=== PATIENT | female | born 1995 | race African-American/Black ===

== ENCOUNTER 2020-07-10 07:12 | Emergency (ER) | payer OTHER ==
[~2020-07-10] VITALS: Ht 170.2 cm; Wt 84.1 kg
[2020-07-10 07:14] VITALS: BP 146/92; Ht 170.2 cm; Wt 84.1 kg
[2020-07-10] MEDS ORDERED: DEPAKOTE500 MG PO (07:34)
[2020-07-10 08:13] LABS: NITRITE NEGATIVE (NEGATIVE)
[2020-07-10 08:14] LABS: BILIRUBIN NEGATIVE (NEGATIVE); KETONE NEGATIVE (NEGATIVE); UROBILINOGEN NORMAL mg/dL (< 2)
[2020-07-10 08:21] LABS: BACTERIA FEW HPF (NONE SEEN); UDS - AMPHET NEGATIVE QUAL (NEGATIVE); UDS - BARB NEGATIVE QUAL (NEGATIVE); UDS - BENZO NEGATIVE QUAL (NEGATIVE); UDS - COCAINE NEGATIVE QUAL (NEGATIVE); UDS - OPIATE NEGATIVE QUAL (NEGATIVE); UDS - PCP NEGATIVE QUAL (NEGATIVE); UDS - THC POSITIVE QUAL (NEGATIVE); WHITE CELLS - URINE 0-5 HPF (0-4)
[2020-07-10 08:22] LABS: BASOPHILS 0.5 % (0-2); EOSINOPHILS 0.8 % (0-7); HEMATOCRIT 38.8 % (36.0-48.0); HEMOGLOBIN 12.8 g/dL (12-16); IMMATURE GRANULOCYTES 0.1 % (0-5); LYMPHOCYTE ABS# 1.88 10x3/uL (1.18-3.74); LYMPHOCYTES 22.4 % (15-50); MCH 26.6 pg (26.0-34.0); MCV 80.7 fL (80.0-100.0); MEAN PLATELET VOLUME 11.1 fL (7.4-10.4); MONOCYTES 12.3 % (2-11); NEUTROPHIL ABS# 5.36 10x3/uL (1.56-6.13); NEUTROPHILS 63.9 % (40-80); PLATELET COUNT 214 10x3/uL (130-400); RBC 4.81 10x6/uL (4.00-5.40); RDW 14.2 % (11.5-14.5); WBC 8.4 10x3/uL (4.8-10.8)
[2020-07-10 08:39] LABS: CALC OSMOLALITY 275 mosm/kg (275-300); CALCIUM 8.6 mg/dL (8.5-10.1); CARBON DIOXIDE 22.4 mmol/L (21.0-32.0); CHLORIDE - SERUM 104 mmol/L (98-107); CREATININE - SERUM 0.7 mg/dL (0.6-1.3); GLUCOSE 88 mg/dL (74-106); POTASSIUM - SERUM 3.6 mmol/L (3.5-5.1); SODIUM 139 mmol/L (136-145); UREA NITROGEN 11 mg/dL (7-18); eGFR NON AFRICAN AMERICAN > 90 mL/min (90-120)
[2020-07-10 08:43] LABS: ALBUMIN 3.9 g/dL (3.4-5.0); ALKALINE PHOSPHATASE 80 U/L (30-120); ALT (SGPT) 30 U/L (10-68); BILIRUBIN - TOTAL 0.61 mg/dL (0.2-1.3); MAGNESIUM - SERUM 2.1 mg/dL (1.8-2.4); PROTEIN - SERUM 7.6 g/dL (6.4-8.2)
[2020-07-10 10:25] LABS: HCG URINE NEGATIVE (NEGATIVE)
--- NOTE | 2020-07-10 11:02 | NUR ---
Dr. Campos notified and reviewed patients behavior and assessment results. Dr. Murguia and charge nurse Jasmina also aware of patients current condition and all agree. Patient has been given medication that has made her very drowsy. She will open her eyes for a few minutes and then close them and roll over on the bed. She cannot answer suicide assessment questions at this time. With review of [facility] assessment of the risk screening, she scores a moderate risk. She will be placed on a observation assessment with a one to one sitter. She also has been placed on a referral from Dr. Murguia for inpatient counseling and medication placement and review. No further orders at this time/date.
[2020-07-10 11:51] LABS: SARS-CoV-2 ANTIGEN NEGATIVE- SARS-COV-2 (NEGATIVE)
== END 2020-07-10 16:24 ==
LOC: D.ER 07:12
PROVIDERS: Emergency Medicine
DX: F30.11 Manic episode without psychotic symptoms, mild (principal); R45.851 Suicidal ideations

== ENCOUNTER 2020-07-27 22:47 | Inpatient (IN) | payer OTHER ==
[~2020-07-27] VITALS: Ht 170.2 cm; Wt 80.5 kg
[~2020-07-27 22:47] MED LIST: DEPAKOTE500 MG PO
[2020-07-27] MEDS ORDERED: TRAZODONE HCL50 MG PO (23:32)
[2020-07-27] MEDS ORDERED: CELEXA20 MG PO (23:32)
[2020-07-27 23:39] LABS: HEMATOCRIT 34.6 % (36.0-48.0); HEMOGLOBIN 11.5 g/dL (12-16); MCH 25.9 pg (26.0-34.0); MCHC 33.2 g/dL (31.0-37.0); MCV 78.1 fL (80.0-100.0); MEAN PLATELET VOLUME 8.6 fL (7.4-10.4); PLATELET COUNT 455 10x3/uL (130-400); RBC 4.43 10x6/uL (4.00-5.40); RDW 13.9 % (11.5-14.5); WBC 34.5 10x3/uL (4.8-10.8)
[2020-07-27 23:49] LABS: CALC OSMOLALITY 274 mosm/kg (275-300); CALCIUM 8.4 mg/dL (8.5-10.1); CARBON DIOXIDE 26.3 mmol/L (21.0-32.0); CHLORIDE - SERUM 100 mmol/L (98-107); CREATININE - SERUM 0.7 mg/dL (0.6-1.3); GLUCOSE 110 mg/dL (74-106); POTASSIUM - SERUM 3.4 mmol/L (3.5-5.1); SODIUM 138 mmol/L (136-145); UREA NITROGEN 7 mg/dL (7-18); eGFR NON AFRICAN AMERICAN > 90 mL/min (90-120)
[2020-07-27 23:54] LABS: HCG SERUM NEGATIVE (NEGATIVE)
[2020-07-27 23:56] LABS: ALBUMIN 2.4 g/dL (3.4-5.0); ALKALINE PHOSPHATASE 110 U/L (30-120); ALT (SGPT) 72 U/L (10-68); BILIRUBIN - TOTAL 0.31 mg/dL (0.2-1.3); PROTEIN - SERUM 7.5 g/dL (6.4-8.2)
[2020-07-28 00:24] LABS: LYMPHOCYTES 11 % (15-50); MONOCYTES 4 % (2-11); NEUTROPHILS 79 % (40-80); PLATELET ESTIMATE INCREASED
[2020-07-28 01:33] LABS: ERYTHROCYTE SEDIMENTATION RATE 42 mm/hr (0-20)
[2020-07-28 02:15] VITALS: BP 131/64
[2020-07-28 02:59] LABS: APTT 34.3 SECONDS (22.8-39.4); INR 1.42 (0.85-1.17); PROTIME 16.1 SECONDS (11.6-15.0)
[2020-07-28 03:51] VITALS: BP 131/69; BMI 27.6
[2020-07-28 09:22] VITALS: BP 131/72
[2020-07-28 11:35] VITALS: BP 117/57
--- NOTE | 2020-07-28 15:55 | NUR ---
RETURN FROM RECOVERY AT THIS TIME IN STABLE CONDITION WITH DRESSING NOTED TO LEFT BUTTOCK. C/L IN REACH AT BEDSIDE.
--- NOTE | 2020-07-28 16:55 | NUR ---
I have reviewed this patient and I concur with the Shift Assessment completed by the Licensed Practical Nurse today this shift.
--- NOTE | 2020-07-28 18:11 | NUR ---
REC'D IN BED AWAKE AND ALERT. RESP EVEN AND UNLABORED WITH NO DISTRESS NOTED. CAN EXPRESS NEEDS AND WANTS. C/O LEFT BUTTOCK HURTING RATING 9/10 ON PAIN SCALE. ASSESSMENT COMPLETED. C/L IN REACH AT BEDSIDE.
[2020-07-28 20:00] VITALS: BP 113/64
[2020-07-29] VITALS: BP 112/67
[2020-07-29 04:00] VITALS: BP 113/64
--- NOTE | 2020-07-29 06:00 | NUR ---
I have reviewed this patient and I concur with the Shift Assessment completed by the Licensed Practical Nurse today this shift.
--- NOTE | 2020-07-29 07:15 | NUR ---
REC'D IN BED AWAKE AND ALERT. RESP EVEN AND UNLABORED WITH NO DISTRESS NOTED CAN EXPRESS NEEDS AND WANTS. ASSESSMENT COMPLETED. C/L IN REACH AT BEDSIDE.
--- NOTE | 2020-07-29 08:01 | NUR ---
WAS MEDICATED WITH MORPHINE AT THIS TIME FOR C/O LEFT BUTTOCK PAIN. C/L IN REACH AT BEDSIDE.
[2020-07-29 08:38] VITALS: BP 121/71
--- NOTE | 2020-07-29 11:26 | NUR ---
I have reviewed this patient and I concur with the Shift Assessment completed by the Licensed Practical Nurse today this shift.
[2020-07-29 11:45] VITALS: BP 110/51
--- NOTE | 2020-07-29 13:20 | NUR ---
WAS MEDICATED WITH PRN MEDICATION OF MORPHINE FOR C/O PAIN. C/L IN REACH AT BEDSIDE.
[2020-07-29 17:03] VITALS: BP 104/58
[2020-07-29 18:58] VITALS: Ht 170.2 cm; Wt 80.5 kg
[2020-07-29 20:00] VITALS: BP 107/58
[2020-07-30 04:00] VITALS: BP 114/60
--- NOTE | 2020-07-30 07:20 | NUR ---
REC'D IN BED AWAKE AND ALERT. RESP EVEN AND UNLABORED WITH NO DISTRESS NOTED. CAN EXPRESS NEEDS AND WANTS. NO C/O NOTED OR VOICED AT THIS TIME. ASSESSMENT COMPLETED. C/L IN REACH AT BEDSIDE.
--- NOTE | 2020-07-30 07:49 | NUR ---
OFF FLOOR AT THIS TIME TO SURGERY SUITE. STABLE CONDITION UPON DEPARTURE.
[2020-07-30 08:23] VITALS: BP 115/63
[2020-07-30] MEDS ORDERED: TYLENOL W/CODEI1 TAB PO (09:21)
[2020-07-30] MEDS ORDERED: BACTRIM DS TAB1 EAC1 PO (09:22)
[2020-07-30 10:21] VITALS: BP 127/70
--- NOTE | 2020-07-30 11:34 | NUR ---
PATIENT IS RESTING WITHOUT DISTRESS.FAMILY IN ROOM.
[2020-07-30 11:44] LABS: HEMATOCRIT 28.1 % (36.0-48.0); HEMOGLOBIN 9.2 g/dL (12-16); MCH 25.7 pg (26.0-34.0); MCHC 32.6 g/dL (31.0-37.0); MCV 78.6 fL (80.0-100.0); MEAN PLATELET VOLUME 7.6 fL (7.4-10.4); PLATELET COUNT 454 10x3/uL (130-400); RBC 3.57 10x6/uL (4.00-5.40); RDW 14.5 % (11.5-14.5); WBC 19.7 10x3/uL (4.8-10.8)
[2020-07-30 12:05] LABS: CALC OSMOLALITY 278 mosm/kg (275-300); CALCIUM 7.4 mg/dL (8.5-10.1); CARBON DIOXIDE 27.3 mmol/L (21.0-32.0); CHLORIDE - SERUM 107 mmol/L (98-107); CREATININE - SERUM 0.6 mg/dL (0.6-1.3); GLUCOSE 100 mg/dL (74-106); POTASSIUM - SERUM 3.9 mmol/L (3.5-5.1); SODIUM 141 mmol/L (136-145); UREA NITROGEN 7 mg/dL (7-18); eGFR NON AFRICAN AMERICAN > 90 mL/min (90-120)
[2020-07-30 12:09] VITALS: BP 118/62
[2020-07-30 14:22] LABS: ANISOCYTOSIS OCC; LYMPHOCYTES 20 % (15-50); MONOCYTES 12 % (2-11); NEUTROPHILS 67 % (40-80); PLATELET ESTIMATE INCREASED
[2020-07-30 17:02] VITALS: BP 97/50
[2020-07-30 20:00] VITALS: BP 101/47
[2020-07-31] VITALS: BP 92/53
[2020-07-31 04:00] VITALS: BP 106/54
--- NOTE | 2020-07-31 04:25 | NUR ---
07/30/20) WALKING ROUNDS CHGE OF SHIFT WD. VAC BEEPING TUBING PLUGGED UP NO AIR LEAK.ENTRY SITE CHECKED PATIENT SCREAMING WHEN ASSISTING TO TURN TO ASSESS.DRESSING LOOKING GOOD. DK BROWNISH COLORED DRAINAGE BEING SUCKED FROM WOUND TUBING AND TO COLLECTION CANISTER. 0045 CONTINUES TO BEEP.0400)CHARGE NURSE ASSESSED WD VAC AND WOUND NO MALFUNCTIOND NOTED WILL CONTINUE TO MONITOR FOR ANY CHGES AND FOLLOW CURRENT PLAN OF CARE
[2020-07-31 08:02] LABS: BASOPHILS 0.5 % (0-2); EOSINOPHILS 0.6 % (0-7); HEMATOCRIT 29.1 % (36.0-48.0); HEMOGLOBIN 9.6 g/dL (12-16); LYMPHOCYTES 26.3 % (15-50); MCH 25.9 pg (26.0-34.0); MCHC 32.8 g/dL (31.0-37.0); MCV 78.8 fL (80.0-100.0); MEAN PLATELET VOLUME 7.7 fL (7.4-10.4); MONOCYTES 11.7 % (2-11); NEUTROPHILS 60.9 % (40-80); PLATELET COUNT 481 10x3/uL (130-400); RDW 14.2 % (11.5-14.5); WBC 15.2 10x3/uL (4.8-10.8)
[2020-07-31 08:27] VITALS: BP 121/70
[2020-07-31 12:37] VITALS: BP 102/50
--- NOTE | 2020-07-31 14:08 | MORECARE ---
CASE MANAGEMENT DISCHARGE SUMMARY PATIENT: DIANN AZUL UNIT: [id number] ADM DATE: 07/28/20 AGE: 24 : 95 SEX: F ROOM/BED: D.2203 AUTHOR: SOHAM,DOC PHYSICIAN: REFERRING PHYSICIAN: SYEDA CARTAGENA MD DATE OF SERVICE: 07/31/20 Case Management Discharge Planning Summary COMMENTS ENTERED DATE: 07/31/20 14:01 CT COMMENT TYPE: Discharge Planning REVIEWER: Laure Jara LATE ENTRY 07/30/20 @1500 CM MET WITH PATIENT AND BOYFRIEND ABOUT DISCHARGE PLANNING. SHE HAS RECENTLY MOVED HERE FROM [place] AND IS STAYING WITH HER MOTHER. SHE IS INDEPENDENT WITH HER CARE AND WILL NEED HOME HEALTH FOR WEEKLY WOUND VAC DRESSING CHANGE. THERE IS NO PREFERENCE ON HOME HEALTH COMPANY, I AM AWAITING FOR DR CHAKRABORTY TO SIGN THE WOUND VAC ORDER FOR INSURANCE TO APPROVE IT. LARISSA SIGNED AND PLACED IN CHART PATIENT'S CORRECT PHONE NUMBER- [phone] DCP REVIEW SUMMARY ANTICIPATED D/C DATE: EXPECTED LOS : CASE STATUS: DCP Initiated INITIAL REVIEW: 07/28/2020 INITIAL REVIEWER: Laure Jara FINAL DISCHARGE DISPOSITION: : FINAL REVIEWER: FINAL REVIEW DATE: DCP Focus Questions & Answers QUESTION: ANSWER : PATIENT: DIANN AZUL ENCOUNTER: [id number] MEDICAL RECORD#: [id number] ADMISSION DATE: 07/28/2020 DISCHARGE DATE: ATTENDING MD: SYEDA MCKEON : AGE: 24 MARITAL STATUS: S DC PLAN ID: [id number] FACILITY: [facility] PRINTED ON: 07/31/20 14:08 CT All edits/amendments must be made on the electronic document DICTATION DATE: 07/31/201407 DAM OPERATOR: DM 07/31/20 140 RPT#: [id number] DC DATE: STATUS: ADM IN [facility] [address] [place] [address] END OF REPORT
--- NOTE | 2020-07-31 14:21 | MORECARE ---
CASE MANAGEMENT DISCHARGE SUMMARY PATIENT: DIANN AZUL UNIT: [id number] ADM DATE: 07/28/20 AGE: 24 : 95 SEX: F ROOM/BED: D.2203 AUTHOR: BELLA ROUSSEAU PHYSICIAN: REFERRING PHYSICIAN: SYEDA CARTAGENA MD DATE OF SERVICE: 07/31/20 Case Management Discharge Planning Summary COMMENTS ENTERED DATE: 07/31/20 14:07 CT COMMENT TYPE: Discharge Planning REVIEWER: Laure Jara HER CARLY IBARRA [phone] ENTERED DATE: 07/31/20 14:01 CT COMMENT TYPE: Discharge Planning REVIEWER: Laure Jara LATE ENTRY 07/30/20 @1500 CM MET WITH PATIENT AND BOYFRIEND ABOUT DISCHARGE PLANNING. SHE HAS RECENTLY MOVED HERE FROM [place] AND IS STAYING WITH HER MOTHER. SHE IS INDEPENDENT WITH HER CARE AND WILL NEED HOME HEALTH FOR WEEKLY WOUND VAC DRESSING CHANGE. THERE IS NO PREFERENCE ON HOME HEALTH COMPANY, I AM AWAITING FOR DR CHAKRABORTY TO SIGN THE WOUND VAC ORDER FOR INSURANCE TO APPROVE IT. LARISSA SIGNED AND PLACED IN CHART PATIENT'S CORRECT PHONE NUMBER- [phone] DCP REVIEW SUMMARY ANTICIPATED D/C DATE: EXPECTED LOS : CASE STATUS: DCP Initiated INITIAL REVIEW: 07/28/2020 INITIAL REVIEWER: Laure Jara FINAL DISCHARGE DISPOSITION: : FINAL REVIEWER: FINAL REVIEW DATE: DCP Focus Questions & Answers QUESTION: ANSWER : PATIENT: DIANN AZUL ENCOUNTER: [id number] MEDICAL RECORD#: [id number] ADMISSION DATE: 07/28/2020 DISCHARGE DATE: ATTENDING MD: SYEDA MCKEON : AGE: 24 MARITAL STATUS: S DC PLAN ID: [id number] FACILITY: [facility] PRINTED ON: 07/31/20 14:21 CT All edits/amendments must be made on the electronic document DICTATION DATE: 07/31/20 142 AIR CARRIER MAINTENANCE INSPECTOR: RASHID 07/31/20 142 RPT#: [id number] DC DATE: STATUS: ADM IN [facility] [address] [place] [address] END OF REPORT
--- NOTE | 2020-07-31 17:15 | NUR ---
ALERT AND ORIENTED X4. WOUND VAC INTACT TO LEFT BUTTOCK AREA AND DENIES ANY PAIN OR DISCOMFORT. IVF INFUSING TO RIGHT HAND WITH NO S/S OF INFECTION/INFILTRATION. ENCOURAGED TO USE CALL LIGHT FOR ASSIST.
--- NOTE | 2020-07-31 23:30 | NUR ---
ASSESSED AT THE BEGINNING OF THE SHIFT. PT IS ALEART AND ORIENTED, ABLE TO VERBALIZE NEEDS. SIGNIFICANT OTHER AT BEDSIDE. ABLE TO GET UP TO BATHROOM TO VOID. SHE IS ALSO IN HER PERIOD. WOUND VAC WAS ALARMING THAT IT WAS LEAKING AND IT WAS RESEALED. AFTER THAT IT ALARMED THAT IT WAS BLOCKED. ATTEMPTED TO FIX THIS AND THEN LOOKED FOR ANOTHER WOUND VAC SINCE IT WAS FOUND OUT THAT IT WAS NOT WORKING SINCE THE NIGHT BEFORE. ASSOCIATE DATA SCIENTIST CALLED AND REQUESTED A NEW WOUND VAC. SHE STATED WE COULD NOT GET ONE AT THIS TIME. MD DR LUGO CALLED AND INFORMED. HE GAVE ORDERS FOR REMOVAL AND A WET TO DRY DRESSING TO BE PLACED ON IT. THIS WAS PAINFUL TO BE REMOVED AND SHE HAD NO PAIN MED AVAIBLE AT THAT TIME. AFTER REMOVED, A WET TO DRY DRESSING WAS APPLIED USING MINIMAL TAPE.
--- NOTE | 2020-08-01 06:13 | NUR ---
PT HAS SLEPT WELL DURING THE NIGHT WITH NO PROBLEMS NOTED.
[2020-08-01 08:48] VITALS: BP 121/87
--- NOTE | 2020-08-01 09:48 | MORECARE ---
CASE MANAGEMENT DISCHARGE SUMMARY PATIENT: DIANN AZUL UNIT: [id number] ADM DATE: 07/28/20 AGE: 24 : 95 SEX: F ROOM/BED: D.2203 AUTHOR: BELLA ROUSSEAU PHYSICIAN: REFERRING PHYSICIAN: SYEDA CARTAGENA MD DATE OF SERVICE: 08/01/20 Case Management Discharge Planning Summary COMMENTS ENTERED DATE: 08/01/20 9:38 CT COMMENT TYPE: Discharge Planning REVIEWER: Laure Jara RECEIVED THE SIGNED WOUND VAC ORDER THIS MORNING I HAVE SUBMITTED IT TO [facility] ENTERED DATE: 07/31/20 14:07 CT COMMENT TYPE: Discharge Planning REVIEWER: Laure Jara HER CARLY IBARRA [phone] ENTERED DATE: 07/31/20 14:01 CT COMMENT TYPE: Discharge Planning REVIEWER: Laure Jara LATE ENTRY 07/30/20 @1500 CM MET WITH PATIENT AND BOYFRIEND ABOUT DISCHARGE PLANNING. SHE HAS RECENTLY MOVED HERE FROM [place] AND IS STAYING WITH HER MOTHER. SHE IS INDEPENDENT WITH HER CARE AND WILL NEED HOME HEALTH FOR WEEKLY WOUND VAC DRESSING CHANGE. THERE IS NO PREFERENCE ON HOME HEALTH COMPANY, I AM AWAITING FOR DR CHAKRABORTY TO SIGN THE WOUND VAC ORDER FOR INSURANCE TO APPROVE IT. LARISSA SIGNED AND PLACED IN CHART PATIENT'S CORRECT PHONE NUMBER- [phone] DCP REVIEW SUMMARY ANTICIPATED D/C DATE: EXPECTED LOS : CASE STATUS: DCP Initiated INITIAL REVIEW: 07/28/2020 INITIAL REVIEWER: Laure Jara FINAL DISCHARGE DISPOSITION: : FINAL REVIEWER: FINAL REVIEW DATE: VAP Focus Questions & Answers QUESTION: ANSWER : PATIENT: DIANN AZUL ENCOUNTER: [id number] MEDICAL RECORD#: [id number] ADMISSION DATE: 07/28/2020 DISCHARGE DATE: ATTENDING MD: SYEDA MCKEON : AGE: 24 MARITAL STATUS: S DC PLAN ID: [id number] FACILITY: [facility] PRINTED ON: 08/01/20 9:48 CT All edits/amendments must be made on the electronic document DICTATION DATE: 08/01/20947 MUSIC REHABILITATION THERAPIST: RASHID 08/01/20947 RPT#: [id number] DC DATE: STATUS: ADM IN [facility] [address] [place] [address] END OF REPORT
[2020-08-01 10:49] LABS: BASOPHILS 1.2 % (0-2); EOSINOPHILS 1.2 % (0-7); HEMATOCRIT 33.9 % (36.0-48.0); HEMOGLOBIN 10.9 g/dL (12-16); LYMPHOCYTES 23.8 % (15-50); MCH 25.3 pg (26.0-34.0); MCV 79.1 fL (80.0-100.0); MEAN PLATELET VOLUME 8.9 fL (7.4-10.4); MONOCYTES 10.4 % (2-11); NEUTROPHILS 63.4 % (40-80); PLATELET COUNT 469 10x3/uL (130-400); RBC 4.29 10x6/uL (4.00-5.40); RDW 14.1 % (11.5-14.5); WBC 16.2 10x3/uL (4.8-10.8)
[2020-08-01 11:56] VITALS: BP 122/68
[2020-08-01 12:56] VITALS: BP 122/68
--- NOTE | 2020-08-01 13:30 | NUR ---
WOUND VAC CHANGED TO LEFT BUTTOCK WITH MORPHINE IR GIVEN FOR PAIN MANAGEMENT. UP ADLIB WITH SBA
--- NOTE | 2020-08-01 15:26 | MORECARE ---
CASE MANAGEMENT DISCHARGE SUMMARY PATIENT: DIANN AZUL UNIT: [id number] ADM DATE: 07/28/20 AGE: 24 : 95 SEX: F ROOM/BED: D.2203 AUTHOR: SOHAM,DOC PHYSICIAN: REFERRING PHYSICIAN: SYEDA CARTAGENA MD DATE OF SERVICE: 08/01/20 Case Management Discharge Planning Summary COMMENTS ENTERED DATE: 08/01/20 15:19 CT COMMENT TYPE: Discharge Planning REVIEWER: Laure Jara PATIENT WOUND VAC HAS BEEN APPROVED, I HAVE FAXED EVERYTHING AND CALLED MATERIALS AND SPOKE WIHT INÉS FOR IT TO BE BROUGHT UP HERE FOR ANTICIPATED DC OVER THE WEEKEND. [facility] WILL BE ACCEPTING HER WHEN SHE IS DISCHARGED. HER DRESSING WAS CHANGED TODAY SO NEXT TIME THE WOUND VAC NEEDS TO BE CHANGED ON August ( NEXT TUESDAY) CM TO FOLLOW NEEDED ENTERED DATE: 08/01/20 9:38 CT COMMENT TYPE: Discharge Planning REVIEWER: Laure Estefani RECEIVED THE SIGNED WOUND VAC ORDER THIS MORNING I HAVE SUBMITTED IT TO [facility] ENTERED DATE: 07/31/20 14:07 CT COMMENT TYPE: Discharge Planning REVIEWER: Laure Jara HER CARLY IBARRA [phone] ENTERED DATE: 07/31/20 14:01 CT COMMENT TYPE: Discharge Planning REVIEWER: Laure Jara LATE ENTRY 07/30/20 @1500 CM MET WITH PATIENT AND BOYFRIEND ABOUT DISCHARGE PLANNING. SHE HAS RECENTLY MOVED HERE FROM [place] AND IS STAYING WITH HER MOTHER. SHE IS INDEPENDENT WITH HER CARE AND WILL NEED HOME HEALTH FOR WEEKLY WOUND VAC DRESSING CHANGE. THERE IS NO PREFERENCE ON HOME HEALTH COMPANY, I AM AWAITING FOR DR CHAKRABORTY TO SIGN THE WOUND VAC ORDER FOR INSURANCE TO APPROVE IT. LARISSA SIGNED AND PLACED IN CHART PATIENT'S CORRECT PHONE NUMBER- [phone] DCP REVIEW SUMMARY ANTICIPATED D/C DATE: EXPECTED LOS : CASE STATUS: DCP Initiated INITIAL REVIEW: 07/28/2020 INITIAL REVIEWER: Laure Jara FINAL DISCHARGE DISPOSITION: : FINAL REVIEWER: FINAL REVIEW DATE: DCP Focus Questions & Answers QUESTION: ANSWER : PATIENT: DIANN AZUL ENCOUNTER: [id number] MEDICAL RECORD#: [id number] ADMISSION DATE: 07/28/2020 DISCHARGE DATE: ATTENDING MD: SYEDA MCKEON : AGE: 24 MARITAL STATUS: S DC PLAN ID: [id number] FACILITY: [facility] PRINTED ON: 08/01/20 15:26 CT All edits/amendments must be made on the electronic document DICTATION DATE: 08/01/20 152 AIRFIELD SERVICES OFFICER: RASHID 08/01/20 1525 RPT#: [id number] DC DATE: STATUS: ADM IN [facility] [address] [place] [address] END OF REPORT
[2020-08-01 16:54] VITALS: BP 101/49
[2020-08-01 20:00] VITALS: BP 130/55
--- NOTE | 2020-08-01 23:45 | NUR ---
ASSESSED AT THE BEGINNING OF SHIFT. PT IS ALERT AND ORIENTED, ABLE TO VERBALIZE NEEDS. THE WOUND VAC IS CONNECTED TO HER LEFT BUTTOCK ABCESS AND FUNCTIONING CORRECTLY. HER LAST TEMP ON DAY SHIFT WAS 101.0 AND SHE RECEIVED TYLENOL. THE NEXT TEMP WAS 98.4 AND THEN 99.6. HER DISCHARGE WAS PLACED ON HOLD TO MAKE SURE THIS WAS RESOLVED BEFORE DISCHARGE. SHE IS UP TO THE BATHROOM AD CHARANJIT AND IS ON ROOM AIR. SIGNIFICANT OTHER REMAINS IN THE ROOM MOST OF THE TIME.
--- NOTE | 2020-08-02 08:00 | NUR ---
ALERT AND ORIENTED X4. WOUND VAC INTACT TO LEFT BUTTOCK AND DENIES ANY PAIN OR DISCOMFORT AT THIS TIME. REPOSITIONED FOR COMFORT. IVF INFUSING AT PRESCRIBED RATE. ENCOURAGED TO USE CALL LIGHT FOR ASSSIT.
[2020-08-02 09:04] VITALS: BP 105/66
--- NOTE | 2020-08-02 16:30 | MORECARE ---
CASE MANAGEMENT DISCHARGE SUMMARY PATIENT: DIANN AZUL UNIT: [id number] ADM DATE: 07/28/20 AGE: 24 : 95 SEX: F ROOM/BED: D.2203 AUTHOR: SOHAM,DOC PHYSICIAN: REFERRING PHYSICIAN: SYEDA CARTAGENA MD DATE OF SERVICE: 08/02/20 Case Management Discharge Planning Summary COMMENTS ENTERED DATE: 08/02/20 16:23 CT COMMENT TYPE: Discharge Planning REVIEWER: Antonia Amador Contacted Linda, construction carpenters helper with [facility], with notification of patient's discharge being today. She stated she would review the patient's chart and callback if she had questions. Discharge instructions faxed to [phone] along with progress notes. ENTERED DATE: 08/01/20 15:19 CT COMMENT TYPE: Discharge Planning REVIEWER: Laure Jara PATIENT WOUND VAC HAS BEEN APPROVED, I HAVE FAXED EVERYTHING AND CALLED MATERIALS AND SPOKE CHRISS CONTE FOR IT TO BE BROUGHT UP HERE FOR ANTICIPATED DC OVER THE WEEKEND. [facility] WILL BE ACCEPTING HER WHEN SHE IS DISCHARGED. HER DRESSING WAS CHANGED TODAY SO NEXT TIME THE WOUND VAC NEEDS TO BE CHANGED ON August ( NEXT TUESDAY) CM TO FOLLOW NEEDED ENTERED DATE: 08/01/20 9:38 CT COMMENT TYPE: Discharge Planning REVIEWER: Laure Estefani RECEIVED THE SIGNED WOUND VAC ORDER THIS MORNING I HAVE SUBMITTED IT TO ON LICENSE OF [facility] ENTERED DATE: 07/31/20 14:07 CT COMMENT TYPE: Discharge Planning REVIEWER: Laure Jara HER CARLY IBARRA [phone] ENTERED DATE: 07/31/20 14:01 CT COMMENT TYPE: Discharge Planning REVIEWER: Laure Jara LATE ENTRY 07/30/20 @1500 CM MET WITH PATIENT AND BOYFRIEND ABOUT DISCHARGE PLANNING. SHE HAS RECENTLY MOVED HERE FROM [place] AND IS STAYING WITH HER MOTHER. SHE IS INDEPENDENT WITH HER CARE AND WILL NEED HOME HEALTH FOR WEEKLY WOUND VAC DRESSING CHANGE. THERE IS NO PREFERENCE ON HOME HEALTH COMPANY, I AM AWAITING FOR DR CHAKRABORTY TO SIGN THE WOUND VAC ORDER FOR INSURANCE TO APPROVE IT. LARISSA SIGNED AND PLACED IN CHART PATIENT'S CORRECT PHONE NUMBER- [phone] DCP REVIEW SUMMARY ANTICIPATED D/C DATE: EXPECTED LOS : CASE STATUS: DCP Initiated INITIAL REVIEW: 07/28/2020 INITIAL REVIEWER: Laure Jara FINAL DISCHARGE DISPOSITION: : FINAL REVIEWER: FINAL REVIEW DATE: DCP Focus Questions & Answers QUESTION: ANSWER : PATIENT: DIANN AZUL ENCOUNTER: [id number] MEDICAL RECORD#: [id number] ADMISSION DATE: 07/28/2020 DISCHARGE DATE: ATTENDING MD: SYEDA MCKEON : AGE: 24 MARITAL STATUS: S DC PLAN ID: [id number] FACILITY: [facility] PRINTED ON: 08/02/20 16:30 CT All edits/amendments must be made on the electronic document DICTATION DATE: 08/02/20 163 SCALES INSPECTOR: RASHID 08/02/20 163 RPT#: [id number] DC DATE: STATUS: ADM IN [facility] [address] [place] [address] END OF REPORT
--- NOTE | 2020-08-02 17:30 | NUR ---
IV DISCONTINUED AND VERBALIZED UNDERSTANDING OF DISCHARGE INSTRUCTIONS WITH WOUND VAC SUPPLIED GIVEN TO PATIENT WELL. STABLE AT TIME OF DISCHARGE.
--- NOTE | 2020-08-02 19:06 | MORECARE ---
CASE MANAGEMENT DISCHARGE SUMMARY PATIENT: DIANN AZUL UNIT: [id number] ADM DATE: 07/28/20 AGE: 24 : 95 SEX: F ROOM/BED: D.2203 AUTHOR: SOHAM,DOC PHYSICIAN: REFERRING PHYSICIAN: SYEDA CARTAGENA MD DATE OF SERVICE: 08/02/20 Case Management Discharge Planning Summary COMMENTS ENTERED DATE: 08/02/20 18:47 CT COMMENT TYPE: Discharge Planning REVIEWER: Neo Phelps Spoke with Linda of [facility]. Linda stated that SOC will have to be Tuesday or After. This appears to be agreeable in that 29 JULY surgical clinical documentation indicates a plan for weekly wound-vac changes. Last change was yesterday on Tuesday. CM will continue to follow and will assist as needed with dc plans/needs. ENTERED DATE: 08/02/20 16:23 CT COMMENT TYPE: Discharge Planning REVIEWER: Antonia Amador Contacted Linda, environmental health officer with [facility], with notification of patient's discharge being today. She stated she would review the patient's chart and callback if she had questions. Discharge instructions faxed to [phone] along with progress notes. ENTERED DATE: 08/01/20 15:19 CT COMMENT TYPE: Discharge Planning REVIEWER: Laure Jara PATIENT WOUND VAC HAS BEEN APPROVED, I HAVE FAXED EVERYTHING AND CALLED [employer]ERIAL[employer] AND SPOKE CHRISS CONTE FOR IT TO BE BROUGHT UP HERE FOR ANTICIPATED DC OVER THE WEEKEND. [facility] WILL BE ACCEPTING HER WHEN SHE IS DISCHARGED. HER DRESSING WAS CHANGED TODAY SO NEXT TIME THE WOUND VAC NEEDS TO BE CHANGED ON August ( NEXT TUESDAY) CM TO FOLLOW NEEDED ENTERED DATE: 08/01/20 9:38 CT COMMENT TYPE: Discharge Planning REVIEWER: Laure Jara RECEIVED THE SIGNED WOUND VAC ORDER THIS MORNING I [facility] ENTERED DATE: 07/31/20 14:07 CT COMMENT TYPE: Discharge Planning REVIEWER: Laure Jara HER CARLY IBARRA [phone] ENTERED DATE: 07/31/20 14:01 CT COMMENT TYPE: Discharge Planning REVIEWER: Laure Jara LATE ENTRY 07/30/20 @1500 CM MET WITH PATIENT AND BOYFRIEND ABOUT DISCHARGE PLANNING. SHE HAS RECENTLY MOVED HERE FROM [place] AND IS STAYING WITH HER MOTHER. SHE IS INDEPENDENT WITH HER CARE AND WILL NEED HOME HEALTH FOR WEEKLY WOUND VAC DRESSING CHANGE. THERE IS NO PREFERENCE ON HOME HEALTH COMPANY, I AM AWAITING FOR DR CHAKRABORTY TO SIGN THE WOUND VAC ORDER FOR INSURANCE TO APPROVE IT. LARISSA SIGNED AND PLACED IN CHART PATIENT'S CORRECT PHONE NUMBER- [phone] DCP REVIEW SUMMARY ANTICIPATED D/C DATE: EXPECTED LOS : CASE STATUS: DCP Initiated INITIAL REVIEW: 07/28/2020 INITIAL REVIEWER: Laure Jara FINAL DISCHARGE DISPOSITION: : FINAL REVIEWER: FINAL REVIEW DATE: [facility] Focus Questions & Answers QUESTION: ANSWER : PATIENT: DIANN AZUL ENCOUNTER: [id number] MEDICAL RECORD#: [id number] ADMISSION DATE: 07/28/2020 DISCHARGE DATE: 08/02/2020 ATTENDING MD: SYEDA MCKEON : AGE: 24 MARITAL STATUS: S DC PLAN ID: [id number] FACILITY: [facility] PRINTED ON: 08/02/20 19:06 CT All edits/amendments must be made on the electronic document DICTATION DATE: 08/02/201905 CARBIDER: RASHID 08/02/201905 RPT#: [id number] DC DATE:08/02/20 STATUS: DIS IN [facility] [address] [place] [address] END OF REPORT
--- NOTE | 2020-08-05 09:39 | MORECARE ---
CASE MANAGEMENT DISCHARGE SUMMARY PATIENT: DIANN AZUL UNIT: [id number] ADM DATE: 07/28/20 AGE: 24 : 95 SEX: F ROOM/BED: D.2203 AUTHOR: SOHAM,DOC PHYSICIAN: REFERRING PHYSICIAN: SYEDA CARTAGENA MD DATE OF SERVICE: 08/05/20 Case Management Discharge Planning Summary COMMENTS ENTERED DATE: 08/02/20 18:47 CT COMMENT TYPE: Discharge Planning REVIEWER: Neo Phelps Spoke with Linda of [facility]. Linda stated that SOC will have to be Tuesday or After. This appears to be agreeable in that 29 JULY surgical clinical documentation indicates a plan for weekly wound-vac changes. Last change was yesterday on Tuesday. CM will continue to follow and will assist as needed with dc plans/needs. ENTERED DATE: 08/02/20 16:23 CT COMMENT TYPE: Discharge Planning REVIEWER: Antonia Amador Contacted Linda, provider relations rep with [facility], with notification of patient's discharge being today. She stated she would review the patient's chart and callback if she had questions. Discharge instructions faxed to [phone] along with progress notes. ENTERED DATE: 08/01/20 15:19 CT COMMENT TYPE: Discharge Planning REVIEWER: Laure Jara PATIENT WOUND VAC HAS BEEN APPROVED, I HAVE FAXED EVERYTHING AND CALLED [employer]ERIALS AND SPOKE CHRISS CONTE FOR IT TO BE BROUGHT UP HERE FOR ANTICIPATED DC OVER THE WEEKEND. [facility] WILL BE ACCEPTING HER WHEN SHE IS DISCHARGED. HER DRESSING WAS CHANGED TODAY SO NEXT TIME THE WOUND VAC NEEDS TO BE CHANGED ON August ( NEXT TUESDAY) CM TO FOLLOW NEEDED ENTERED DATE: 08/01/20 9:38 CT COMMENT TYPE: Discharge Planning REVIEWER: Laure Jara RECEIVED THE SIGNED WOUND VAC ORDER THIS MORNING I HAVE SUBMITTED IT TO [facility] ENTERED DATE: 07/31/20 14:07 CT COMMENT TYPE: Discharge Planning REVIEWER: Laure Jara HER CARLY IBARRA [phone] ENTERED DATE: 07/31/20 14:01 CT COMMENT TYPE: Discharge Planning REVIEWER: Laure Jara LATE ENTRY 07/30/20 @1500 CM MET WITH PATIENT AND BOYFRIEND ABOUT DISCHARGE PLANNING. SHE HAS RECENTLY MOVED HERE FROM [place] AND IS STAYING WITH HER MOTHER. SHE IS INDEPENDENT WITH HER CARE AND WILL NEED HOME HEALTH FOR WEEKLY WOUND VAC DRESSING CHANGE. THERE IS NO PREFERENCE ON HOME HEALTH COMPANY, I AM AWAITING FOR DR CHAKRABORTY TO SIGN THE WOUND VAC ORDER FOR INSURANCE TO APPROVE IT. LARISSA SIGNED AND PLACED IN CHART PATIENT'S CORRECT PHONE NUMBER- [phone] PAP REVIEW SUMMARY ANTICIPATED D/C DATE: EXPECTED LOS : CASE STATUS: DCP Initiated INITIAL REVIEW: 07/28/2020 INITIAL REVIEWER: Laure Jara FINAL DISCHARGE DISPOSITION: : FINAL REVIEWER: FINAL REVIEW DATE: [facility] Focus Questions & Answers QUESTION: ANSWER : PATIENT: DIANN AZUL ENCOUNTER: [id number] MEDICAL RECORD#: [id number] ADMISSION DATE: 07/28/2020 DISCHARGE DATE: 08/02/2020 ATTENDING MD: SYEDA MCKEON : AGE: 24 MARITAL STATUS: S DC PLAN ID: [id number] FACILITY: [facility] PRINTED ON: 08/05/20 9:38 CT All edits/amendments must be made on the electronic document DICTATION DATE: 08/05/20937 ECONOMIC HISTORIAN: RASHID 08/05/20 0938 RPT#: [id number] DC DATE:08/02/20 STATUS: DIS IN [facility] [address] [facility] [place] [address] END OF REPORT
== END 2020-08-02 17:31 | disposition home health service (06) | DRG 394 ==
LOC: D.ER 22:47 → D.MS 07-28 02:16 → D.EDHOLD 07-28 02:16 → D.MS 07-28 02:32
PROVIDERS: Student in an Organized Health Care Education/Training Program; Surgery; ADMIT Legal Medicine; ATTEND Legal Medicine
PROC: 0D9P3ZZ Drainage of Rectum, Percutaneous Approach (ICD-10-PCS; principal; 2020-07-28 14:00)
PROC: 2W1PX6Z Compression of Left Upper Leg using Pressure Dressing (ICD-10-PCS; 2020-07-30 08:00)
DX: K61.1 Rectal abscess (principal); F31.11 Bipolar disorder, current episode manic without psychotic features, mild; R45.851 Suicidal ideations; Z72.0 Tobacco use; K59.00 Constipation, unspecified; D72.829 Elevated white blood cell count, unspecified

== ENCOUNTER 2020-08-11 19:04 | Emergency (ER) | payer OTHER ==
[~2020-08-11 19:04] MED LIST changes: +BACTRIM DS TAB1 EAC1 PO; +CELEXA20 MG PO; +TRAZODONE HCL50 MG PO; +TYLENOL W/CODEI1 TAB PO
[2020-08-11 19:08] VITALS: BP 127/71; Ht 170.2 cm
[2020-08-12] MEDS ORDERED: TYLENOL W/CODEI1 TAB PO (15:27)
== END 2020-08-11 21:49 | disposition left against medical advice (07) ==
LOC: D.ER 19:04
DX: Z48.00 Encounter for change or removal of nonsurgical wound dressing (principal)

== ENCOUNTER 2020-08-13 07:58 | Day surgery (SDC) | payer OTHER ==
[~2020-08-13] VITALS: Ht 170.2 cm; Wt 77.1 kg
[2020-08-13 08:27] LABS: HEMATOCRIT 32.9 % (36.0-48.0); HEMOGLOBIN 10.6 g/dL (12-16); MCHC 32.2 g/dL (31.0-37.0); MCV 80.7 fL (80.0-100.0); MEAN PLATELET VOLUME 8.9 fL (7.4-10.4); RBC 4.07 10x6/uL (4.00-5.40); RDW 15.2 % (11.5-14.5); WBC 5.6 10x3/uL (4.8-10.8)
[2020-08-13 08:42] LABS: HCG SERUM NEGATIVE (NEGATIVE)
[2020-08-13 09:10] VITALS: BP 101/60; Ht 170.2 cm; Wt 77.1 kg
[2020-08-13] MEDS ORDERED: BACTRIM DS TAB1 EAC1 PO (11:48)
--- NOTE | 2020-08-13 17:11 | NUR ---
1342 IV DC'D. CATHETER TIP INTACT. NO BLEEDING AT SITE. COBAN DRESSING APPLIED. SPOKE WITH DR CHAKRABORTY'S OFFICE EARLIER AND THEY HAVE SET UP HOME [facility] VISITS FOR PT WHICH WILL BEGIN ON August. PT IS AWARE OF THIS INFORMATION. PT DOES NOT HAVE A RIDE HOME AND IS REQUESTING A RIDE HOME IN A [employer]AX[employer]. SHE STATED THAT SHE CAME TO HOSPITAL IN A [place] BUT DOES NOT HAVE THE MONEY TO GET HOME. FABIO, SPOOL TENDER, NOTIFIED AND HAS MADE THE ARRANGEMENTS FOR PT'S TRANSPORT HOME. 1400 PT HAS MET DISCHARGE CRITERIA AND IS WAITING FOR [employer] TO TRANSPORT HER HOME. PT VOICES UNDERSTANDING OF THE DISCHARGE INSTRUCTIONS AND THE IMPORTANCE OF STARTING HER ABX THERAPY.
== END 2020-08-13 14:56 | disposition home or self-care (01) ==
LOC: D.OPS 07:58
PROVIDERS: Anesthesiology; ATTEND Surgery
DX: Z18.89 Other specified retained foreign body fragments (principal); E66.9 Obesity, unspecified; Z86.59 Personal history of other mental and behavioral disorders